=== PATIENT | male | born 1950 | race African-American/Black ===

== ENCOUNTER 2018-06-17 14:45 | Emergency (ER) | payer OTHER ==
[~2018-06-17] VITALS: Ht 182.9 cm; Wt 130.0 kg
[2018-06-17] MEDS ORDERED: MORPHINE SULFATE 4 MG/ML CPJ (NOT FOR IM USE) IV STA (15:04)
[2018-06-17] MEDS ORDERED: ONDANSETRON HCL 4MG/2ML INJ IV STA (15:04)
[2018-06-17] MEDS ORDERED: ASPIRIN 81MG TABLET PO ONE (15:15)
[2018-06-17] MEDS ORDERED: FUROSEMIDE 40MG/4ML VIAL IV ONE (15:15)
[2018-06-17 15:21] LABS: BG BASE EXCESS -0.1 mmol/L (-2.0-2.0); BG DEOXYHEMOGLOBIN 5.1 % (0.0-5.0); BG HCO3 ACT 22.2 mmol/L (22.0-26.0); BG METHEMOGLOBIN 0.2 % (0.0-1.5); BG OXYGEN SATURATION 94.8 % (92.0-98.5); BG OXYHEMOGLOBIN 93.7 % (94.0-97.0); BG PCO2 30.1 mmHg (35.0-45.0); BG PH 7.486 (7.350-7.450); BG PO2 73.5 mmHg (75.0-100.0); BG SAMPLE SITE RIGHT BRACHIAL; BG TOTAL HEMOGLOBIN 14.3 g/dL (12.0-18.0); BG VENT MODE NASAL CANNULA
[2018-06-17 15:31] LABS: BASOPHILS % 0.6 % (0.0-2.0); EOSINOPHILS % 0.6 % (0.0-5.0); HEMATOCRIT. 39.7 % (42.0-52.0); HEMOGLOBIN. 13.8 g/dL (14.0-18.0); LYMPHOCYTES % 13.5 % (20.0-50.0); MEAN CORPUSCULAR HEMOGLOBIN 35.6 pg (28.0-32.0); MEAN CORPUSCULAR VOLUME 102.2 fL (80.0-94.0); MEAN PLATELET VOLUME 8.6 fl (7.4-10.4); MONOCYTES % 7.2 % (2.0-8.0); NEUTROPHILS % 78.1 % (40.0-76.0); PLATELET 111 x1000/uL (130-400); RED BLOOD CELL COUNT 3.89 mill/uL (4.7-6.1)
[2018-06-17 15:35] LABS: CHLORIDE 106 mEq/L (98-107)
[2018-06-17 15:39] LABS: ETHANOL BLOOD < 10 mg/dL
[2018-06-17 15:41] LABS: INR 2.1; PARTIAL THROMBOPLASTIN TIME 35.9 sec (23.4-31.0); PROTHROMBIN TIME 20.6 sec (9.6-11.0)
[2018-06-17] MEDS ORDERED: LEVOFLOXACIN 750MG PREMIX 150 ML IV ONE (16:15)
[2018-06-17] MEDS ORDERED: IOHEXOL-350 100 ML BOTTLE ONE (19:41)
[2018-06-17 20:18] LABS: *BARBITURATES SCREEN URINE NEGATIVE (NEGATIVE); *BENZODIAZEPINES SCREEN URINE NEGATIVE (NEGATIVE); *COCAINE SCREEN URINE NEGATIVE (NEGATIVE); METHADONE URINE SCREEN NEGATIVE (NEGATIVE); OPIATES URINE SCREEN PRESUMTIVE POSITIVE (NEGATIVE)
[2018-06-17 20:19] LABS: *AMPHETAMINES SCREEN URINE NEGATIVE (NEGATIVE); CANNABINOID URINE SCREEN NEGATIVE (NEGATIVE); PHENCYCLIDINE URINE SCREEN NEGATIVE (NEGATIVE)
[2018-06-17 20:48] VITALS: BP 98/56
== END 2018-06-17 21:02 | disposition short-term general hospital (02) ==
LOC: ER 14:59 → CANBEDREQ 23:14
DX: R06.02 Shortness of breath (principal); R60.1 Generalized edema; K74.60 Unspecified cirrhosis of liver; I10 Essential (primary) hypertension; Z85.05 Personal history of malignant neoplasm of liver
CPT/HCPCS: 36415; 36600; 71045; 71275; 80053; 80305; 80320; 82375; 82805; 83605; 83880; 84484; 85025; 85610; 85730; 87040; 87086; 93005; 93970; 96374; 96375; 99285; J1940; J1956; J2270; J2405; Q9967; G0480